=== PATIENT | female | born 1985 | race Caucasian/White ===

== ENCOUNTER 2017-04-02 18:53 | Emergency (ER) | payer BC, OTHER ==
[2017-04-02] MEDS ORDERED: Albuterol/Ipratropium NEB.SOL* Albuterol 2.5 MG/Ipratropium 0.5 MG 3 ML INH ONE ×2 (19:51→20:51)
--- NOTE | 2017-04-02 20:02 | UC ---
Zora Boyle Emily, scribed for Pura Montgomery MD on 04/02/17 at 1955 . Respiratory Complaint HPI - HPI Summary HPI Summary: This patient is a 31 year old F presenting to urgent care with a chief complaint of cough that began 1 week ago. The patient rates the pain 3/10 in severity. Pt states pain chest wall and only with coughing. Symptoms aggravated by nothing. Symptoms alleviated by nothing. Patient reports wheezing , chills, and post nasal drip. Patient denies ear pain, sinus pain, nausea, vomiting, and sore throat. No fevers, chills, rash. + fatigue. Pt has taken some OTC products, but none today. No rash. Remote h/o asthma- no current inhaler. Patient reports sick contacts at home 1-2 weeks ago. Patients medications reviewed this visit. - History of Current Complaint Chief Complaint: UCRespiratory Stated Complaint: COUGH Time Seen by Provider: 04/02/17 19:45 Hx Obtained From: Patient Hx Last Menstrual Period: May 2014 Onset/Duration: Sudden Onset, Lasting Weeks, Still Present Severity Initially: Mild Severity Currently: Mild Pain Intensity: 3 Pain Scale Used: 0-10 Numeric Aggravating Factors: Nothing Alleviating Factors: Nothing Associated Signs And Symptoms: Positive: Chills. Negative: Sinus Discomfort - Allergies/Home Medications Allergies/Adverse Reactions: Allergies Allergy/AdvReac Type Severity Reaction Status Date / Time No Known Allergies Allergy Verified 04/02/17 19:11 PMH/Surg Hx/FS Hx/Imm Hx Previously Healthy: No Endocrine History: Other Other Endocrine History: Severe vitamin D deficiency Respiratory History: Asthma - Surgical History Surgical History: Yes Surgery Procedure, Year, and Place: [facility], t/a - Family History Family History: COPD. Asthma - Social History Occupation: Employed Full-time Lives: With Family Alcohol Use: None Substance Use Type: None Smoking Status (MU): Never Smoked Tobacco Review of Systems Constitutional: Chills, Fatigue ENT: Other - Positive post nasal drip. Negative ear pain, sinus pain, and sore throat Respiratory: Cough, Other - Positive wheezing Gastrointestinal: Other - Negative nausea and vomiting All Other Systems Reviewed And Are Negative: Yes Physical Exam Triage Information Reviewed: Yes Appearance: Well-Appearing, No Pain Distress, Well-Nourished Vital Signs: Initial Vital Signs Temp 98 F 11/27/17 19:12 Pulse 78 04/02/17 19:12 Resp 21 04/02/17 19:12 BP 136/87 04/02/17 19:12 Pulse Ox 100 04/02/17 19:12 Vital Signs Reviewed: Yes Eye Exam: Normal Eyes: Positive: Conjunctiva Clear ENT Exam: Normal ENT: Positive: Normal ENT inspection, Hearing grossly normal, Pharynx normal, Nasal congestion, TMs normal, Other - laryngitis Dental Exam: Normal Neck exam: Normal Neck: Positive: Supple, Nontender Respiratory Exam: Normal Respiratory: Positive: Chest non-tender, Rhonchi - coarse, persistent cough + rhonci right base scattered wheeze no accessory muscle use, Wheezing. Negative : Normal breath sounds Cardiovascular Exam: Normal Abdominal Exam: Normal Musculoskeletal Exam: Normal Neurological Exam: Normal Psychological Exam: Normal Skin Exam: Normal UC Diagnostic Evaluation - Laboratory O2 Sat by Pulse Oximetry: 100 - Radiology Radiology Interpretation Completed By: Radiologist - CXR reveals, per radiologist, right basal infiltrate or atelectasis. Physician has reviewed this radiology report and agrees. Re-Evaluation - Re-Evaluation First Eval Change: Improved - Pt markedly improved following nebulizer. reviewed cXR with pt will start abx declined diflucan hydrated mdi with spacer tessalon pearls Will give second neb [employer] TE[employer] pt comfortable and in agreement with plan Respiratory Course/Dx - Course Course Of Treatment: Pt present with coarse, persistent cough x 10 days. Pt wth chills and fatigue. Pt with coarse cough and rhonci right base. will check CXR. neb. reassess - Differential Dx/Diagnosis Provider Diagnoses: pna Discharge - Discharge Plan Condition: Stable Disposition: HOME Prescriptions: Amoxicillin/Clavulanate TAB* [Augmentin TAB 875*] 875 mg PO BID #20 tab Benzonatate CAP* [Tessalon 100 MG CAP*] 100 mg PO TID #20 cap Patient Education Materials: Pneumonia (ED) Referrals: Kesah Way MD [Primary Care Provider] - Additional Instructions: - Stay well hydrated. Drink plenty of non-alcoholic, non-caffinated beverages - Take antibiotics 2 times a day as prescribed. These will likely cause diarrhea. Okay to take immodium as needed - Alternate ibuprofen (advil, Motrin) and tylenol every 3 hours for fever or pain - Use your inhaler, 2 puffs every 4 hours today and tomorrow, then every 4 hours as needed - Okay to take over the counter cough medication such as robitussin or the tessalon pearls as prescribed - After you have been on antibiotics for 2 days - change your toothbrush and your pillowcase. These infections are spread by secretions - do NOT share eating or drinking utensils - clean items you share with other people such as cell phones, computer mouse, TV remote, computer tablets, etc - Contact your doctor to schedule a recheck next week. Contact your doctor or return with questions or concerns The documentation as recorded by the Zora green Emily accurately reflects the service I personally performed and the decisions made by me, Pura Montgomery MD.
--- NOTE | 2017-04-02 20:16 | RAD ---
INDICATION: Cough COMPARISON: None TECHNIQUE: PA and lateral dual-energy views were obtained. FINDINGS: Bones/Soft Tissues: There are no acute bony findings. Cardiomediastinal: The cardiomediastinal silhouette is normal. Lungs: There is a small infiltrate or atelectasis in right lung base. The remaining lung kebede are clear. Pleura: There are no pleural effusions. Other: None IMPRESSION: RIGHT BASAL INFILTRATE OR ATELECTASIS.
[2017-04-02] MEDS ORDERED: Amoxicillin/Clavulanate TAB* 875 MG PO ONE (20:34)
[2017-04-02] MEDS ORDERED: Albuterol HFA INHALER* 8 gm MDI INH ONE (20:41)
[2017-04-02 20:57] VITALS: BP 119/80
== END 2017-04-02 21:17 | disposition home or self-care (01) ==
LOC: UCEAST 18:53
DX: J18.9 Pneumonia, unspecified organism (principal); R09.82 Postnasal drip; E55.9 Vitamin D deficiency, unspecified; J45.909 Unspecified asthma, uncomplicated
CPT/HCPCS: 71020; 99213; A9270-GY; G0463

== ENCOUNTER 2017-07-10 15:42 | Emergency (ER) | payer OTHER ==
[2017-07-10 16:13] VITALS: BP 130/96
--- NOTE | 2017-07-10 16:13 | UC ---
Abdominal Pain Female HPI - HPI Summary HPI Summary: Pt presents with RUQ pain that radiates to her right shoulder blade. She tells me that she is currently 8 weeks and this is her third . About 1 week ago she developed mild RUQ pain that was mostly annoying. 2 days ago her RUQ pain became worse and is aggravating by eating. About 1 hour after she eats she will feel nauseous and have stabbing and cramping RUQ pain. Resting and waiting will improve the pain within 30minutes to an hour, but is still bothersome. She has been afraid to eat due to this discomfort. Denies fever, chills, cough, SOB, chest pain, vomiting, diarrhea, pelvic pain/cramping , vaginal bleeding or discharge. - History of Current Complaint Chief Complaint: UCAbdominalPain Stated Complaint: ABDOMINAL PAIN Time Seen by Provider: 07/10/17 16:12 Hx Obtained From: Patient Hx Last Menstrual Period: May 2014 ?: Yes Onset/Duration: Gradual Onset Severity Initially: Moderate Severity Currently: Moderate Pain Intensity: 5 Pain Scale Used: 0-10 Numeric Allergies/Adverse Reactions: Allergies Allergy/AdvReac Type Severity Reaction Status Date / Time No Known Allergies Allergy Verified 07/10/17 15:45 Home Medications: Home Medications Vitamin TAB* 1 tab PO DAILY 07/10/17 [History Confirmed 07/10/17] PMH/Surg Hx/FS Hx/Imm Hx Previously Healthy: Yes - Surgical History Surgical History: Yes Surgery Procedure, Year, and Place: [facility], t/a - Family History Family History: COPD. Asthma - Social History Occupation: Employed Full-time Lives: With Family Alcohol Use: None Substance Use Type: None Smoking Status (MU): Never Smoked Tobacco Review of Systems Constitutional: Negative Skin: Negative Respiratory: Negative Cardiovascular: Negative Gastrointestinal: Abdominal Pain, Nausea Genitourinary: Negative Neurological: Negative Psychological: Negative All Other Systems Reviewed And Are Negative: Yes Physical Exam - Summary Physical Exam Summary: GENERAL: NAD. WDWN. No pain distress. SKIN: No rashes, sores, ulcers, masses, lesions. NECK: Supple. Nontender. No lymphadenopathy. CHEST: CTAB. No r/r/w. No accessory muscle use. Breathing comfortably and in no distress. CV: RRR. Without m/r/g. Pulses intact. Brisk cap refill. ABDOMEN: Moderate TTP RUQ. Positive Sanchez sign. Soft. No distention or guarding. No CVA tenderness. Bowel sounds present x4. NEURO: Alert. CN II-XII grossly intact. PSYCH: Age appropriate behavior. Triage Information Reviewed: Yes Vital Signs: Initial Vital Signs Temp 98.5 F 07/10/17 15:46 Pulse 91 07/10/17 15:46 Resp 16 07/10/17 15:46 BP 145/102 07/10/17 15:46 Pulse Ox 100 07/10/17 15:46 Abd Pain Female Course/Dx - Course Course Of Treatment: UA with 1+ leuk, 1+ ketone, and trace protein. Her BP is elevated today 145/102 and then 130/96 on manual recheck. I suspect the source of her pain is coming from her gallbladder, but given her BP, status, and inability for imaging tonight at - I have advised her to seek further evaluation in the ED. She was agreeable to this and will have her drive her. - Differential Dx/Diagnosis Provider Diagnoses: RUQ pain. Elevated BP in Discharge - Discharge Plan Condition: Stable Disposition: OTHER Discharge Disposition Comment: To [facility] [place] private [place] Referrals: Kesha Way MD [Primary Care Provider] - Additional Instructions: Please go to the [facility] ED for further evaluation of your abdominal pain.
== END 2017-07-10 16:30 ==
LOC: UCEAST 15:42
DX: O26.891 Other specified pregnancy related conditions, first trimester (principal); R10.11 Right upper quadrant pain; R11.0 Nausea; R03.0 Elevated blood-pressure reading, without diagnosis of hypertension; Z3A.08 8 weeks gestation of pregnancy
CPT/HCPCS: 81003; 87086; 99212; G0463

== ENCOUNTER 2017-07-10 16:48 | Emergency (ER) | payer OTHER ==
--- NOTE | 2017-07-10 19:27 | RAD ---
Indication: Right upper quadrant pain. Real-time sonography of the right upper quadrant was performed. The liver is enlarged measuring up to 19.3 cm in length. There are no focal lesions or intrahepatic ductal dilatation noted. There is diffusely increased echogenicity of liver consistent with hepatic steatosis with areas of focal fatty sparing adjacent to the gallbladder fossa. The gallbladder is distended with no gallstones, pericholecystic fluid or wall thickening. The common duct measures up to 5 mm. The right kidney measures 12.1 x 3.9 x 4.5 cm. The pancreas head, neck and proximal body demonstrates no mass or pancreatic ductal dilatation. Aorta and inferior vena cava are unremarkable. IMPRESSION: Enlarged echogenic liver consistent with hepatic steatosis. No evidence of cholelithiasis or biliary ductal dilatation is noted.
[2017-07-10] MEDS ORDERED: Metoclopramide IV* 5 MG/ML 2 ML VIAL IV SLOW PU ONE (20:33)
[2017-07-10] MEDS ORDERED: Famotidine IV* 10 MG/ML 2 ML (20 mg) IV SLOW PU ONE (20:34)
[2017-07-10 21:02] LABS: ABS Basophils 0.1 10^3/ul (0-0.2); ABS Eosinophils 0.2 10^3/ul (0-0.6); ABS Lymphocytes 1.6 10^3/ul (1.0-4.8); ABS Monocytes 0.9 10^3/ul (0-0.8); ABS Neutrophils 6.9 10^3/ul (1.5-7.7); ABS Nucleated RBC 0 10^3/ul; Eosinophil % 1.6 % (0-6); Hematocrit 43 % (35-47); Hemoglobin 14.9 g/dl (12.0-16.0); Lymphocyte % 16.1 % (25-47); Mean Corpuscular HGB Conc 35 g/dl (31-36); Mean Corpuscular Hemoglobin 29 pg (27-31); Mean Corpuscular Volume 85 fL (80-97); Mean Platelet Volume 8 um3 (7.4-10.4); Nucleated Red Blood Cells % 0.1; Platelet Count 233 10^3/ul (150-450); Red Blood Count 5.05 10^6/ul (4.0-5.4); Red Cell Distribution Width 15 % (10.5-15); White Blood Count 9.7 10^3/ul (3.5-10.8)
[2017-07-10 21:16] LABS: EGFR Non-African American 102.7 (>60)
[2017-07-10 22:21] LABS: Urine Appearance Clear; Urine Blood Negative (Negative); Urine Color Yellow; Urine Ketones 2+ (Negative); Urine Protein Negative (Negative); Urine Specific Gravity 1.025 (1.010-1.030); Urine Urobilinogen Negative (Negative)
--- NOTE | 2017-07-10 22:53 | ED ---
Gibran Boyle Abhishek, scribed for Juancarlos Manzano MD on 07/10/17 at 2038 . Abdominal Pain/Female - HPI Summary HPI Summary: This patient is a 31 year old F presenting to [facility] from [facility] by ambulance with a chief complaint of URQ abd pain since 0000 (07/07/17). The pt is 8 weeks and she is G3: P2: A0. According to the pt, abd pain has been present since Sunday. The patient rates the pain 5/10 in severity. Patient reports nausea, vomiting, shoulder pain, and diarrhea (07/10/17). Patient denies vaginal bleeding, and pelvic cramping. - History of Current Complaint Chief Complaint: EDAbdPain Stated Complaint: ABD PAIN/8 WKS PREG-SENT FROM Time Seen by Provider: 07/10/17 20:25 Hx Obtained From: Patient Onset/Duration: Gradual Onset, Lasting Days - 07/07/17, Still Present Timing: Constant Severity Initially: Moderate Severity Currently: Moderate Pain Intensity: 4 Pain Scale Used: 0-10 Numeric Location: Epigastric Aggravating Factor(s): Nothing Alleviating Factor(s): Nothing Associated Signs and Symptoms: Positive: Nausea, Vomiting, Diarrhea, Other: - Negative pelvic cramping Allergies/Adverse Reactions: Allergies Allergy/AdvReac Type Severity Reaction Status Date / Time No Known Allergies Allergy Verified 07/10/17 15:45 PMH/Surg Hx/FS Hx/Imm Hx Respiratory History: Denies: Hx Asthma Sensory History: Denies: Hx Glaucoma, Hx Legally Blind, Hx Deafness Opthamlomology History: Denies: Hx Legally Blind - Surgical History Surgery Procedure, Year, and Place: [facility], t/a Infectious Disease History: No Infectious Disease History: Denies: Hx Clostridium Difficile, Hx Hepatitis, Hx Human Immunodeficiency Virus (HIV), Hx of Known/Suspected MRSA, Hx Shingles, Hx Tuberculosis, Hx Known/ Suspected VRE, Hx Known/Suspected VRSA, History Other Infectious Disease, Traveled Outside the in Last 30 Days - Family History Family History: COPD. Asthma - Social History Alcohol Use: None Substance Use Type: Reports: None Hx Tobacco Use: No Smoking Status (MU): Never Smoked Tobacco Review of Systems Constitutional: Negative Eyes: Negative ENT: Negative Cardiovascular: Negative Respiratory: Negative Positive: Abdominal Pain, Vomiting, Diarrhea, Nausea Genitourinary: Other - Negative pelvic cramping and vaginal bleeding Musculoskeletal: Other - Shoulder pain Skin: Negative Neurological: Negative Psychological: Normal All Other Systems Reviewed And Are Negative: Yes Physical Exam - Summary Physical Exam Summary: VITAL SIGNS: Reviewed. GENERAL: ~Patient is a well-developed and nourished (FEMALE) who is lying comfortable in the stretcher. Patient is not in any acute respiratory distress. HEAD AND FACE: No signs of trauma. No ecchymosis, hematomas or skull depressions. No sinus tenderness. EYES: PERRLA, EOMI x 2, No injected conjunctiva, no nystagmus. EARS: Hearing grossly intact. Ear canals and tympanic membranes are within normal limits. MOUTH: Oropharynx within normal limits. NECK: Supple, trachea is midline, no adenopathy, no JVD, no carotid bruit, no c- spine tenderness, neck with full ROM. CHEST: Symmetric, no tenderness at palpation LUNGS: Clear to auscultation bilaterally. No wheezing or crackles. CVS: Regular rate and rhythm, S1 and S2 present, no murmurs or gallops appreciated. ABDOMEN: Epigastric Tenderness EXTREMITIES: FROM in all major joints, no edema, no cyanosis or clubbing. NEURO: Alert and oriented x 3. No acute neurological deficits. Speech is normal and follows commands. SKIN: Dry and warm Triage Information Reviewed: Yes Vital Signs On Initial Exam: Initial Vitals Temp Pulse Resp BP Pulse Ox 98.7 F 92 18 143/87 99 07/10/17 16:52 07/10/17 16:52 07/10/17 16:52 07/10/17 16:52 07/10/17 16:52 Vital Signs Reviewed: Yes Diagnostics - Vital Signs Vital Signs Temp Pulse Resp BP Pulse Ox 07/10/17 19:20 99.7 F 93 20 142/90 100 07/10/17 16:52 98.7 F 92 18 143/87 99 - Laboratory Result Diagrams: 07/10/17 20:52 07/10/17 20:52 Lab Statement: Any lab studies that have been ordered have been reviewed, and results considered in the medical decision making process. - Ultrasound No standard instances Ultrasound Interpretation Completed By: Radiologist - US gallbladder reveals Enlarged echogenic liver consistent with hepatic steatosis. No evidence of cholelithiasis or biliary ductal dilatation is noted. ED Physician has reviewed this radiology report and agrees. Re-Evaluation - Re-Evaluation 3170 Re-Evaluation Time: 21:50 Change: Improved Comment: Pt is feeling better Abdominal Pain Fem Course/Dx - Course Course Of Treatment: 31 y/o female presenting to the [facility] via ambulance a chief complaint of abd pain (URQ). The pt reports shoulder pain, vomitting, nausea, and diarrhea. Pt is also 8 weeks currently (G3: P2: A0). An ultrasound of the gallbladder was taken. Upon revevaluation, pt's condition has improved and she was "feeling better." The pt will be discharged home with dx of gastro-esophageal reflux, early and epigastric pain. Pt reportedly has an appointment with an [facility] later this week and will follow up with them. - Diagnoses Provider Diagnoses: Gastroesophageal reflux, Epigastric abdominal pain, Early stage of Discharge - Discharge Plan Condition: Stable Disposition: HOME Referrals: Kesha Way MD [Primary Care Provider] - The documentation as recorded by the Gibran green Abhishek accurately reflects the service I personally performed and the decisions made by me, Juancarlos Manzano MD.
[2017-07-10 22:58] VITALS: BP 126/81
== END 2017-07-10 23:00 | disposition home or self-care (01) ==
LOC: ED 16:48
DX: O26.891 Other specified pregnancy related conditions, first trimester (principal); K21.9 Gastro-esophageal reflux disease without esophagitis; R10.13 Epigastric pain; R11.2 Nausea with vomiting, unspecified; R19.7 Diarrhea, unspecified; M25.519 Pain in unspecified shoulder; Z3A.08 8 weeks gestation of pregnancy
CPT/HCPCS: 36415; 76705; 80053; 81003; 81015; 82150; 83690; 83735; 85025; 96361; 96374; 99284; J2765

== ENCOUNTER 2018-01-20 09:07 | Emergency (ER) | payer OTHER ==
[2018-01-20 09:13] VITALS: BP 146/86
--- NOTE | 2018-01-20 09:46 | UC ---
Complaint Female HPI - HPI Summary HPI Summary: 2 day history burning urination and frequency . currently 36 weeks - History Of Current Complaint Chief Complaint: UCGU Stated Complaint: POSS UTI Time Seen by Provider: 01/20/18 09:12 Hx Obtained From: Patient Hx Last Menstrual Period: May 2014 ?: Yes Onset/Duration: Sudden Onset Timing: Constant Severity Initially: Mild Severity Currently: Moderate Pain Intensity: 6 Associated Signs And Symptoms: Negative: Vaginal Bleeding/Discharge, Nausea, Vomiting(# Of Episodes =) - Allergies/Home Medications Allergies/Adverse Reactions: Allergies Allergy/AdvReac Type Severity Reaction Status Date / Time No Known Allergies Allergy Verified 01/20/18 09:14 Home Medications: Home Medications glyBURIDE TAB* [Diabeta TAB*] 2.5 mg PO BID 01/20/18 [History Confirmed 01/20/18 ] metFORMIN* [Glucophage 500 MG TAB *] 500 mg PO BID 01/20/18 [History Confirmed 01/20/18] PMH/Surg Hx/FS Hx/Imm Hx Previously Healthy: Yes Endocrine History: Diabetes - gestational - Surgical History Surgical History: Yes Surgery Procedure, Year, and Place: [facility], t[facility]a - Family History Known Family History: Positive: None Negative: Hypertension, Diabetes Family History: COPD. Asthma - Social History Occupation: Unemployed Lives: With Family Alcohol Use: None Substance Use Type: None Smoking Status (MU): Never Smoked Tobacco Review of Systems Constitutional: Negative Respiratory: Negative Cardiovascular: Negative Genitourinary: Dysuria, Frequency, Urgency, Other - has felt movement today Psychological: Negative All Other Systems Reviewed And Are Negative: Yes Physical Exam Triage Information Reviewed: Yes Appearance: Well-Appearing, No Pain Distress, Well-Nourished Vital Signs: Initial Vital Signs Temp 98 F 01/20/18 09:08 Pulse 123 01/20/18 09:08 Resp 20 01/20/18 09:08 BP 146/86 01/20/18 09:08 Pulse Ox 100 01/20/18 09:08 Vital Signs Reviewed: Yes Respiratory Exam: Normal Cardiovascular Exam: Normal Abdomen Description: Positive: Other: - gravid Neurological Exam: Normal Psychological Exam: Normal Skin Exam: Normal Complaint Female Dx - Differential Dx/Diagnosis Differential Diagnosis/HQI/PQRI: Pelvic Inflammatory Disease, Urinary Tract Infection Provider Diagnoses: UTI Discharge - Sign-Out/Discharge Documenting (check all that apply): Patient Departure All imaging exams completed and their final reports reviewed: No Studies - Discharge Plan Condition: Stable Disposition: HOME Prescriptions: Cephalexin CAP* [Keflex CAP*] 500 mg PO QID #20 cap Referrals: Kesha Way MD [Primary Care Provider] - 2 Days (recheck B/P) Additional Instructions: drink plenty of fluids Return if you experience fever, chills or new symptoms - Billing Disposition and Condition Condition: STABLE Disposition: Home
--- NOTE | 2018-01-21 16:49 | UC ---
- Progress Note Progress Note: no growth no change marisolj 01/21/18 Discharge - Sign-Out/Discharge Documenting (check all that apply): Post-Discharge Follow Up All imaging exams completed and their final reports reviewed: No Studies - Discharge Plan Condition: Stable Disposition: HOME Prescriptions: Cephalexin CAP* [Keflex CAP*] 500 mg PO QID #20 cap Referrals: Kesha Way MD [Primary Care Provider] - 2 Days (recheck B/P) Additional Instructions: drink plenty of fluids Return if you experience fever, chills or new symptoms - Billing Disposition and Condition Condition: STABLE Disposition: Home
== END 2018-01-20 10:00 | disposition home or self-care (01) ==
LOC: UCEAST 09:07
DX: O23.43 Unspecified infection of urinary tract in pregnancy, third trimester (principal); O24.415 Gestational diabetes mellitus in pregnancy, controlled by oral hypoglycemic drugs; Z3A.36 36 weeks gestation of pregnancy
CPT/HCPCS: 81003; 87086; 99212; G0463

== ENCOUNTER 2018-09-16 11:09 | Emergency (ER) | payer OTHER ==
[2018-09-16 11:45] VITALS: BP 135/87
--- NOTE | 2018-09-16 12:39 | UC ---
Throat Pain/Nasal Rylan HPI - HPI Summary HPI Summary: 32 -year-old female with a sore throat that started Shantanu then went away for one day and then started again in the past 24 hours with a feeling of her throat feeling full. She's had a fever in the past 24 hours. No drooling and no difficulty speaking. She is breast-feeding 7-month-old baby. - History of Current Complaint Chief Complaint: UCGeneralIllness Stated Complaint: SORE THROAT CONGESTION Time Seen by Provider: 09/16/18 11:36 Hx Obtained From: Patient Hx Last Menstrual Period: no period yet after ?: No Onset/Duration: Gradual Onset Severity: Moderate Pain Intensity: 3 Cough: None Associated Signs & Symptoms: Positive: Negative - Allergies/Home Medications Allergies/Adverse Reactions: Allergies Allergy/AdvReac Type Severity Reaction Status Date / Time No Known Allergies Allergy Verified 09/16/18 11:37 Home Medications: Home Medications Acetaminophen [Tylenol] 325 mg PO ONCE 09/16/18 [History Confirmed 09/16/18] PMH/Surg Hx/FS Hx/Imm Hx Previously Healthy: Yes - Surgical History Surgical History: Yes Surgery Procedure, Year, and Place: [facility], t[facility]a - Family History Known Family History: Positive: None Negative: Hypertension, Diabetes Family History: COPD. Asthma - Social History Lives: With Family Alcohol Use: None Substance Use Type: None Smoking Status (MU): Never Smoked Tobacco Review of Systems All Other Systems Reviewed And Are Negative: Yes Constitutional: Positive: Fever - Fever in the past 24 hours. ENT: Positive: Sore Throat - Sore throat which started Sunday and went away on the weekend and started again in the past 24 hours. Is Patient Immunocompromised?: No Physical Exam Triage Information Reviewed: Yes Appearance: Well-Appearing, No Pain Distress, Well-Nourished Vital Signs: Initial Vital Signs Temp 99.8 F 09/16/18 11:39 Pulse 102 09/16/18 11:39 Resp 18 09/16/18 11:39 BP 135/87 09/16/18 11:39 Pulse Ox 96 09/16/18 11:39 Vital Signs Reviewed: Yes ENT: Positive: Hearing grossly normal, Pharyngeal erythema, TMs normal, Tonsillar swelling - Very minimal tonsillar swelling bilaterally., Uvula midline - No exudate. Negative: Tonsillar exudate, Trismus, Muffled voice, Hoarse voice Neck: Positive: Supple, Nontender, Enlarged Nodes @ - Mildly enlarged tonsillar lymph nodes bilaterally. Respiratory: Positive: Lungs clear, Normal breath sounds, No respiratory distress, No accessory muscle use Cardiovascular: Positive: RRR, No Murmur, Pulses Normal, Brisk Capillary Refill Abdomen Description: Positive: Nontender, No Organomegaly, Soft Bowel Sounds: Positive: Present Throat Pain/Nasal Course/Dx - Course Course Of Treatment: Rapid strep test is positive. - Differential Dx/Diagnosis Provider Diagnosis: Strep pharyngitis Discharge - Sign-Out/Discharge Documenting (check all that apply): Patient Departure All imaging exams completed and their final reports reviewed: No Studies - Discharge Plan Condition: Fair Disposition: HOME Prescriptions: Amoxicillin PO (*) [Amoxicillin 875 MG (*)] 875 mg PO BID 10 Days #20 tab Patient Education Materials: Strep Throat (DC) Referrals: Ariadna Ornelas MD [Primary Care Provider] - Additional Instructions: Increase fluids, change her toothbrush in 24 hours, go to the emergency room if you are unable to swallow your saliva or feel like her throat is closing or any worsening symptoms. - Billing Disposition and Condition Condition: FAIR Disposition: Home - Attestation Statements Provider Attestation: I was available for consult. This patient was seen by the ECHO. The patient was not presented to, seen by, or examined by me. -Errol
== END 2018-09-16 13:33 | disposition home or self-care (01) ==
LOC: UCEAST 11:09
DX: J02.0 Streptococcal pharyngitis (principal)
CPT/HCPCS: 87651; 99212; G0463